=== PATIENT | male | born 1970 | race Hispanic/Latino ===

== ENCOUNTER 2017-09-26 15:52 | Outpatient (CLI) | payer OTHER ==
--- NOTE | 2017-09-26 18:22 | MRI ---
MRI OF LEFT SHOULDER PERFORMED WITHOUT CONTRAST ENHANCEMENT: 09/26/17 HISTORY: Shoulder pain. There are mild AC joint hypertrophic changes present. There is a complete full thickness supraspinatu s tendon tear. Tendon is retracted by as much as 2.2 cm. It does continue as a partial lower grade u ndersurface tear into the anterior fibers of the infraspinatus tendon. The subscapularis shows a partial undersurface tear. Somewhat difficult to evaluate due to obliquity. The biceps tendon does appear to be within a normal position within the bicipital groove. The intra- articular portion of the biceps tendon is tendinotic and there is probable split tear present. Labrum is not well assessed due to motion. Some minimal irregularity to the posterior superior labrum is seen. No significant muscle atrophy present. IMPRESSION: 1. Almost near complete or complete full thickness retracted supraspinatus tendon tear. Tear is retracted by slightly greater than 2 cm and the AP dimension of the tear is also approximately 2 cm. No significant muscle atrophy. There is partial tear of the undersurface of the infraspinatus tendon and undersurface tear of the superior fibers of the subscapularis tendon which appears to be low grad e. 2. Truncated appearance of the posterior superior labrum suggesting degenerative fraying. 3. Tendinotic appearance of the intra-articular portion of biceps tendon. Increased signal park e as it passes into the bicipital groove suggests the presence of a developing split tear. POS: [facility]
== END 2017-09-26 15:53 | disposition home or self-care (01) ==
LOC: SCSMRI 15:52
PROVIDERS: ATTEND Family Medicine
DX: M75.42 Impingement syndrome of left shoulder (principal); M75.122 Complete rotator cuff tear or rupture of left shoulder, not specified as traumatic